=== PATIENT | female | born 1985 | race Two or more races ===

== ENCOUNTER 2019-05-28 17:23 | Emergency (ER) | payer SELFPAY ==
[~2019-05-28] VITALS: Ht 167.6 cm; Wt 71.5 kg
[2019-05-28 18:06] LABS: BASOPHILS % (AUTO) 0 % (0-1); EOSINOPHILS # (AUTO) 0.01 x10^3/uL (0-0.4); EOSINOPHILS % (AUTO) 0 % (1-7); LYMPHOCYTES # (AUTO) 0.78 x10^3/uL (1-3.4); LYMPHOCYTES % (AUTO) 17 % (22-44); MD NO; MEAN CORPUSCULAR HEMOGLOBIN 23.8 pg (27.0-34.8); MEAN CORPUSCULAR VOLUME 76.8 fL (80-100); MEAN PLATELET VOLUME 9.2 fL (7.4-10.4); MONOCYTES # (AUTO) 0.34 x10^3/uL (0.2-0.8); MONOCYTES % (AUTO) 7 % (2-9); NEUTROPHILS # (AUTO) 3.56 x10^3/uL (1.8-6.8); NEUTROPHILS % (AUTO) 76 % (42-75); PLATELET COUNT 275 x10^3/uL (130-400); RED BLOOD COUNT 4.47 x10^6/uL (3.82-5.3); RED CELL DISTRIBUTION WIDTH 16.7 % (9.6-15.2)
--- NOTE | 2019-05-28 18:08 | NUR ---
PT TO XRAY, LABS COLLECTED.
[2019-05-28 18:16] LABS: RAPID INFLUENZA A Negative (Negative); RAPID INFLUENZA B POSITIVE (Negative)
[2019-05-28 18:16] LABS: ALBUMIN 3.4 g/dL (3.4-5.0); ANION GAP 6 mmol/L (5-15); CALCIUM 8.2 mg/dL (8.5-10.1); CHLORIDE 110 mmol/L (98-107); CREATININE 0.85 mg/dL (0.55-1.02)
[2019-05-28 18:44] VITALS: BP 100/68
== END 2019-05-28 19:11 | disposition home or self-care (01) ==
LOC: ED 19:01
DX: J10.1 Influenza due to other identified influenza virus with other respiratory manifestations (principal)
CPT/HCPCS: 36415; 71046; 80048; 82040; 85025; 85379; 87400; 93005; 99284